=== PATIENT | male | born 1975 | race Caucasian/White ===

== ENCOUNTER 2020-02-04 22:09 | Emergency (ER) | payer SELFPAY ==
[~2020-02-04] VITALS: Ht 177.8 cm; Wt 133.8 kg
[2020-02-04 22:10] VITALS: BP_SYST 175
--- NOTE | 2020-02-04 22:10 | NUR ---
Patient to ER bed 5 to gown for evaluation. Side rails up.
--- NOTE | 2020-02-04 22:11 | NUR ---
DR. CHEUNG AT THE BEDSIDE EVALUATING PT
[2020-02-04] MEDS ORDERED: HYDROcodone/ACETAMIN 5-325 MG TAB (NORCO/ VICODIN) PO ONE (22:15)
[2020-02-04] MEDS ORDERED: IBUPROFEN 400 MG TABLET PO ONE (22:15)
--- NOTE | 2020-02-04 22:15 | NUR ---
PT REPORTS WORSENING PAIN TO THE LEFT SIDE OF JAW, STARTING 2 DAYS AGO WITH WHAT HE BELIEVES TO BE A CRACKED TOOTH ON THE LOWER LEFT SIDE AFTER BITING INTO SOMETHING HARD. SINCE THEN THE PAIN HAS RADIATING UP TO LEFT UPPER JAW. HE HAS HAD DIFFICULTY SLEEPING DUE TO THE PAIN AND IS UNABLE TO FIND A DENTIST AT THIS TIME. HE HAS HX OF BILATERAL KNEE SURGURY. AAOX4, V/S STABLE. WILL MONITOR FOR SAFETY
--- NOTE | 2020-02-04 22:30 | NUR ---
PT MEDICATED FOR PAIN PER MD ORDERS
--- NOTE | 2020-02-04 22:40 | NUR ---
Patient given written and verbal discharge instructions and verbalizes understanding. ER MD discussed with patient the results and treatment provided. Patient in stable condition. ID arm band removed. Rx of ACETAMINOPHEN, NORCO, PENICILLIN AND IBUPROFEN given. Patient educated on pain management and to follow up with PMD. Pain Scale 5/10. Opportunity for questions provided and answered. Medication side effect fact sheet provided.
[2020-02-04 22:42] VITALS: BP_SYST 175
== END 2020-02-04 22:40 | disposition home or self-care (01) ==
LOC: SED 22:09
DX: S02.69XA Fracture of mandible of other specified site, initial encounter for closed fracture (principal); K04.01 Reversible pulpitis; F17.210 Nicotine dependence, cigarettes, uncomplicated; W22.8XXA Striking against or struck by other objects, initial encounter; Y93.89 Activity, other specified; Y92.89 Other specified places as the place of occurrence of the external cause; Y99.8 Other external cause status
CPT/HCPCS: 99283